=== PATIENT | female | born 1965 | race Caucasian/White ===

== ENCOUNTER 2017-02-24 18:56 | Inpatient (IN) | payer MEDICARE, OTHER ==
[~2017-02-24] VITALS: Ht 165.1 cm; Wt 54.5 kg
[~2017-02-24 18:56] MED LIST: CLON0.1T20 PO; LEVE250T4 PO; PHEN100C4 PO; TEMA15CA PO; ZOL50T PO
[2017-02-24 19:32] LABS: BASOPHILS % (AUTO) 0.6 % (0-1); EOSINOPHILS % (AUTO) 0.8 % (0-6); HEMATOCRIT 39.5 % (35.0-45.0); HEMOGLOBIN 13.7 g/dl (12.0-16.0); LYMPHOCYTES # (AUTO) 1.2 X10'3 (1.1-4.8); LYMPHOCYTES % (AUTO) 48.4 % (21-51); MEAN CORPUSCULAR HEMOGLOBIN 37.3 PG (27.0-31.0); MEAN CORPUSCULAR HGB CONC 34.7 % (33.0-36.5); MEAN CORPUSCULAR VOLUME 107.6 FL (78-98); MEAN PLATELET VOLUME 7.4 FL (7.4-10.4); MONOCYTES # (AUTO) 0.4 X10'3 (0-0.9); MONOCYTES % (AUTO) 14.8 % (2-12); NEUTROPHILS # (AUTO) 0.8 X10'3 (1.8-7.7); NEUTROPHILS % (AUTO) 35.4 % (42-75); PLATELET COUNT 101 X10'3 (140-440); RED BLOOD COUNT 3.67 X10'6 (4.20-5.60); RED CELL DISTRIBUTION WIDTH 18.2 % (11.5-14.5); WHITE BLOOD COUNT 2.4 X10'3 (4.5-11.0)
[2017-02-24 19:43] LABS: INR 0.9 INR; PARTIAL THROMBOPLASTIN TIME 27 SECONDS (22-32); PROTHROMBIN TIME 9.7 SECONDS (9.0-12.0)
[2017-02-24 19:54] LABS: ALANINE AMINOTRANSFERASE 40 U/L (12-78); ALBUMIN 3.8 G/DL (3.4-5.0); ALBUMIN/GLOBULIN RATIO 0.9 (1.1-1.5); ALKALINE PHOSPHATASE 124 IU/L (46-116); ANION GAP 12 (8-16); ASPARTATE AMINO TRANSFERASE 68 U/L (10-37); BILIRUBIN,TOTAL 0.2 MG/DL (0.1-1.0); BLOOD UREA NITROGEN 8 MG/DL (7-18); CALCIUM 8.2 MG/DL (8.5-10.1); CHLORIDE 105 MMOL/L (99-107); ETHANOL 0.351 GM/DL (0.0-0.010); GLUCOSE 87 MG/DL (70-104); PHENYTOIN (DILANTIN) 17.7 UG/ML (10.0-20.0); SODIUM 143 MMOL/L (135-145); TOTAL CARBON DIOXIDE 26.3 MMOL/L (24-32); TOTAL PROTEIN 7.9 G/DL (6.4-8.2); eGFR > 90 ML/MIN
[2017-02-24] MEDS ORDERED: normal saline 1000ML IV soln IVB ONE (20:10)
[2017-02-24 20:50] LABS: TOTAL CELLS COUNTED 100
[2017-02-24 20:51] LABS: ANISOCYTOSIS 2+; PLATELET ESTIMATE DECREASED
[2017-02-24 21:02] LABS: CLARITY,URINE CLEAR (Clear); COLOR,URINE YELLOW (Yellow); GLUCOSE, URINE NEGATIVE (Neg); KETONES,URINE NEGATIVE (Neg); LEUKOCYTE ESTERASE ,URINE NEGATIVE (Neg); NITRITES, URINE NEGATIVE (Neg); OCCULT BLOOD,URINE NEGATIVE (Neg); PROTEIN,URINE NEGATIVE (Neg); URINE AMPHETAMINE SCREEN NEGATIVE (Neg); URINE BARBITUATE SCREEN NEGATIVE (Neg); URINE BENZODIAZEPINES SCREEN NEGATIVE (Neg); URINE CANNABINOID SCREEN NEGATIVE (Neg); URINE COCAINE SCREEN NEGATIVE (Neg); URINE METHADONE SCREEN NEGATIVE (Neg); URINE OPIATE SCREEN NEGATIVE (Neg); URINE PHENCYCLIDINE SCREEN NEGATIVE (Neg); UROBILINOGEN,URINE 0.2 E.U/dL (0.2-1.0)
[2017-02-24 21:21] LABS: UA COLLECTION TYPE CLN CATCH MIDSTREAM
[2017-02-25] MEDS ORDERED: LORazepam 2 mg/ml vial ONE ×2 (08:32→08:47)
[2017-02-25] MEDS ORDERED: LORazepam 2 mg/ml vial IM ONE (08:35)
[2017-02-25] MEDS ORDERED: phenobarbital inj 260 MG in normal saline 100ml IV soln 99 ML IV STA (08:43)
[2017-02-25] MEDS ORDERED: LORazepam 2 mg/ml vial IV ONE ×2 (08:45→08:50)
[2017-02-25] MEDS ORDERED: thiamine inj. 100 MG in normal saline 100ml IV soln 99 ML IV ONE (08:45)
[2017-02-25] MEDS ORDERED: normal saline 1000ML IV soln IVB ONE (08:45)
[2017-02-25] MEDS ORDERED: magnesium 2GM in 50ml NS 50 ML IV ONE (08:45)
[2017-02-25] MEDS ORDERED: phenytoin sod 50mg/ml 2ml vial IV ONE (08:50)
[2017-02-25] MEDS ORDERED: phenytoin sod 50mg/ml 2ml vial IV SCH (08:50)
[2017-02-25] MEDS ORDERED: phenobarbital inj 130 MG in normal saline 100ml IV soln 99 ML IV PRN (11:50)
[2017-02-25] MEDS ORDERED: potassium Cl 20 mEq SR tablet PO PRN (15:15)
[2017-02-25] MEDS ORDERED: magnesium 2GM in 50ml NS 50 ML IV PRN (15:15)
[2017-02-25] MEDS ORDERED: dextrose 50%-water 50ml dispensing syringe IV PRN (15:15)
[2017-02-25] MEDS ORDERED: ondansetron/PF 4mg/2ml inj IV PRN (15:15)
[2017-02-25] MEDS ORDERED: LORazepam 2 mg/ml vial IV PRN ×2 (15:15→21:30)
[2017-02-25] MEDS ORDERED: potassium Cl 40MEQ/NS 500ml 500 ML IV PRN ×2 (15:15)
[2017-02-25] MEDS ORDERED: mag hydrox/Alum hydrox/simeth 30ml oral suspension PO PRN (15:15)
[2017-02-25] MEDS ORDERED: magnesium hydroxide 30ml (MOM) UD suspension PO PRN (15:15)
[2017-02-25] MEDS ORDERED: acetaminophen 325mg tablet PO PRN (15:15)
[2017-02-25] MEDS ORDERED: magnesium 4gm in 100ml NS 100 ML IV PRN (15:15)
[2017-02-25] MEDS ORDERED: cloNIDine 0.1 MG/24 HOUR patch (7 day patch) TD SCH (15:15)
[2017-02-25] MEDS ORDERED: haloperidol lactate 5mg/ml inj IM PRN (15:15)
[2017-02-25] MEDS ORDERED: magnesium Cl slow-release 64mg tablet PO PRN (15:15)
[2017-02-25 17:50] VITALS: BP 164/94
[2017-02-25] MEDS ORDERED: phenytoin sod ER 100mg capsule PO SCH (20:00)
[2017-02-25] MEDS ORDERED: heparin, porcine 5000 units/ml vial SQ SCH (20:00)
[2017-02-25] MEDS ORDERED: temazepam 15mg capsule PO PRN (21:00)
[2017-02-25] MEDS: phenytoin sod ER 100mg capsule PO SCH (21:06)
[2017-02-25] MEDS: levetiracetam 250mg tablet PO SCH (21:06)
[2017-02-25 22:00] VITALS: BP 135/92
[2017-02-26 05:00] VITALS: BP 122/89
[2017-02-26 06:34] LABS: HEMATOCRIT 39.2 % (35.0-45.0); HEMOGLOBIN 13.6 g/dl (12.0-16.0); MEAN CORPUSCULAR HEMOGLOBIN 37.5 PG (27.0-31.0); MEAN CORPUSCULAR HGB CONC 34.7 % (33.0-36.5); MEAN PLATELET VOLUME 7.9 FL (7.4-10.4); PLATELET COUNT 78 X10'3 (140-440); RED BLOOD COUNT 3.63 X10'6 (4.20-5.60); WHITE BLOOD COUNT 2.7 X10'3 (4.5-11.0)
[2017-02-26 06:48] LABS: ALANINE AMINOTRANSFERASE 39 U/L (12-78); ALBUMIN 3.7 G/DL (3.4-5.0); ALBUMIN/GLOBULIN RATIO 0.9 (1.1-1.5); ALKALINE PHOSPHATASE 106 IU/L (46-116); ANION GAP 11 (8-16); ASPARTATE AMINO TRANSFERASE 53 U/L (10-37); BILIRUBIN,TOTAL 0.6 MG/DL (0.1-1.0); BLOOD UREA NITROGEN 5 MG/DL (7-18); BUN/CREATININE RATIO 9.3 (6.6-38.0); CALCIUM 8.4 MG/DL (8.5-10.1); CHLORIDE 99 MMOL/L (99-107); CREATININE 0.54 MG/DL (0.40-0.90); GLUCOSE 75 MG/DL (70-104); MAGNESIUM 2.1 MG/DL (1.5-2.4); PHOSPHORUS 2.9 MG/DL (2.3-4.5); SODIUM 137 MMOL/L (135-145); TOTAL CARBON DIOXIDE 26.9 MMOL/L (24-32); TOTAL PROTEIN 7.8 G/DL (6.4-8.2); eGFR > 90 ML/MIN
[2017-02-26 07:05] LABS: POTASSIUM 2.9 MMOL/L (3.5-5.1)
[2017-02-26 07:49] LABS: ANISOCYTOSIS 2+; PLATELET ESTIMATE DECREASED; TOTAL CELLS COUNTED 100
[2017-02-26] MEDS ORDERED: K and/or MAG REPLACEMENT MC SCH (08:00)
[2017-02-26] MEDS ORDERED: folic acid 1mg tablet PO SCH ×2 (08:00)
[2017-02-26] MEDS ORDERED: pantoprazole 40 MG vial IV SCH (08:00)
[2017-02-26] MEDS ORDERED: sertraline 50mg tablet PO SCH (08:00)
[2017-02-26] MEDS ORDERED: multivitamins, therapeutics tablet PO SCH ×2 (08:00)
[2017-02-26] MEDS ORDERED: thiamine 100mg tablet PO SCH ×2 (08:00)
[2017-02-26] MEDS: phenytoin sod ER 100mg capsule PO SCH (08:13)
[2017-02-26] MEDS: levetiracetam 250mg tablet PO SCH (08:14)
[2017-02-26] MEDS: potassium Cl 20 mEq SR tablet PO PRN ×2 (08:14→12:06)
[2017-02-26 10:00] VITALS: BP 134/77
[2017-02-26] MEDS ORDERED: THI100T PO (13:22)
[2017-02-26] MEDS ORDERED: FOLI1TAB16 PO (13:22)
[2017-02-26] MEDS ORDERED: CLON0.1T20 PO (13:22)
[2017-02-26] MEDS ORDERED: MULT-1179 PO (13:22)
[2017-02-26] MEDS ORDERED: LEVE250T4 PO (14:00)
[2017-02-27] MEDS ORDERED: LORazepam 2 mg/ml vial IV PRN (21:30)
[2017-02-27] MEDS ORDERED: LORazepam 1 MG tablet PO PRN (21:30)
[2017-03-01] MEDS ORDERED: LORazepam 2 mg/ml vial IV PRN ×2 (15:15→21:30)
[2017-03-01] MEDS ORDERED: LORazepam 1 MG tablet PO PRN (21:30)
== END 2017-02-26 16:36 | disposition home or self-care (01) | DRG 897 ==
LOC: ER 18:57 → ED HOLD 02-25 14:13 → ORTHO 4S 02-25 17:50
PROVIDERS: ADMIT Internal Medicine; ATTEND Internal Medicine
DX: F10.239 Alcohol dependence with withdrawal, unspecified (principal); F10.229 Alcohol dependence with intoxication, unspecified; G40.89 Other seizures; F32.9 Major depressive disorder, single episode, unspecified; F41.9 Anxiety disorder, unspecified; G31.9 Degenerative disease of nervous system, unspecified; Z79.899 Other long term (current) drug therapy; Z90.49 Acquired absence of other specified parts of digestive tract
CPT/HCPCS: 36415; 70450; 71045; 80053; 80177; 80185; 80305; 80320; 81003; 82140; 82948; 83735; 84100; 84132; 84484; 85025; 85610; 85730; 87070; 96361; 96365; 96366; 96375; 99291; C9113; J1165; J1644; J2060; J2560; J3411; J3475; J7030

== ENCOUNTER 2017-06-08 15:13 | Inpatient (IN) | payer MEDICARE, MEDICAID ==
[~2017-06-08] VITALS: Ht 177.8 cm; Wt 70.0 kg
[~2017-06-08 15:13] MED LIST changes: +FOLI1TAB16 PO; +MULT-1179 PO; -PHEN100C4 PO; +THI100T PO
[2017-06-08] MEDS ORDERED: normal saline 1000ML IV soln IVB ONE ×2 (15:40→17:40)
[2017-06-08] MEDS ORDERED: LORazepam 2 mg/ml vial IV ONE ×2 (15:45→18:45)
[2017-06-08 16:13] LABS: BASOPHILS % (AUTO) 0.1 % (0-1); EOSINOPHILS % (AUTO) 0 % (0-6); HEMATOCRIT 38.5 % (35.0-45.0); HEMOGLOBIN 13.6 g/dl (12.0-16.0); LYMPHOCYTES # (AUTO) 0.3 X10'3 (1.1-4.8); LYMPHOCYTES % (AUTO) 9.2 % (21-51); MEAN CORPUSCULAR HEMOGLOBIN 41.4 PG (27.0-31.0); MEAN CORPUSCULAR HGB CONC 35.3 % (33.0-36.5); MEAN CORPUSCULAR VOLUME 117.3 FL (78-98); MEAN PLATELET VOLUME 7.7 FL (7.4-10.4); MONOCYTES # (AUTO) 0.2 X10'3 (0-0.9); MONOCYTES % (AUTO) 5.6 % (2-12); NEUTROPHILS # (AUTO) 3.2 X10'3 (1.8-7.7); NEUTROPHILS % (AUTO) 85.1 % (42-75); PLATELET COUNT 153 X10'3 (140-440); RED BLOOD COUNT 3.28 X10'6 (4.20-5.60); RED CELL DISTRIBUTION WIDTH 15.8 % (11.5-14.5); WHITE BLOOD COUNT 3.8 X10'3 (4.5-11.0)
[2017-06-08 16:24] LABS: ALANINE AMINOTRANSFERASE 119 U/L (12-78); ALBUMIN 4.3 G/DL (3.4-5.0); ALBUMIN/GLOBULIN RATIO 1.2 (1.1-1.5); ALKALINE PHOSPHATASE 146 IU/L (46-116); ANION GAP 23 (8-16); ASPARTATE AMINO TRANSFERASE 224 U/L (10-37); BILIRUBIN,TOTAL 1.5 MG/DL (0.1-1.0); BLOOD UREA NITROGEN 5 MG/DL (7-18); BUN/CREATININE RATIO 5.2 (6.6-38.0); CALCIUM 8.8 MG/DL (8.5-10.1); CHLORIDE 98 MMOL/L (99-107); CREATININE 0.96 MG/DL (0.40-0.90); GLUCOSE 145 MG/DL (70-104); POTASSIUM 3.6 MMOL/L (3.5-5.1); SODIUM 137 MMOL/L (135-145); TOTAL CARBON DIOXIDE 15.9 MMOL/L (24-32); eGFR 62 ML/MIN
[2017-06-08 16:29] LABS: PHENYTOIN (DILANTIN) < 0.5 UG/ML (10.0-20.0)
[2017-06-08 16:32] LABS: ETHANOL < 0.010 GM/DL (0.0-0.010)
[2017-06-08 17:41] LABS: PLATELET ESTIMATE NORMAL
[2017-06-08 17:46] LABS: ANISOCYTOSIS 1+
[2017-06-08 18:48] LABS: URINE AMPHETAMINE SCREEN NEGATIVE (Neg); URINE BARBITUATE SCREEN NEGATIVE (Neg); URINE BENZODIAZEPINES SCREEN POSITIVE (Neg); URINE CANNABINOID SCREEN NEGATIVE (Neg); URINE COCAINE SCREEN NEGATIVE (Neg); URINE METHADONE SCREEN NEGATIVE (Neg); URINE OPIATE SCREEN NEGATIVE (Neg); URINE PHENCYCLIDINE SCREEN NEGATIVE (Neg)
[2017-06-08] MEDS ORDERED: levetiracetam inj 500 MG in normal saline 100ml IV soln 95 ML IV ONE (21:31)
[2017-06-08] MEDS: normal saline 1000ml 1,000 ML IV SCH (22:49)
[2017-06-08] MEDS ORDERED: mag hydrox/Alum hydrox/simeth 30ml oral suspension PO PRN (22:50)
[2017-06-08] MEDS ORDERED: magnesium hydroxide 30ml (MOM) UD suspension PO PRN (22:50)
[2017-06-08] MEDS ORDERED: ondansetron/PF 4mg/2ml inj IV PRN (22:50)
[2017-06-08] MEDS ORDERED: acetaminophen 325mg tablet PO PRN ×2 (22:50)
[2017-06-08] MEDS ORDERED: haloperidol 5mg tablet PO PRN (22:55)
[2017-06-08] MEDS ORDERED: thiamine inj. 100 MG in normal saline 100ml IV soln 100 ML IV ONE (22:55)
[2017-06-09] MEDS ORDERED: thiamine 100mg/ml 2ml inj. IV ONE (01:40)
[2017-06-09 06:01] LABS: BASOPHILS % (AUTO) 0.2 % (0-1); EOSINOPHILS % (AUTO) 0.6 % (0-6); HEMOGLOBIN 13.1 g/dl (12.0-16.0); LYMPHOCYTES # (AUTO) 0.5 X10'3 (1.1-4.8); MEAN CORPUSCULAR HEMOGLOBIN 41.6 PG (27.0-31.0); MEAN CORPUSCULAR HGB CONC 35.5 % (33.0-36.5); MEAN CORPUSCULAR VOLUME 117.3 FL (78-98); MEAN PLATELET VOLUME 7.2 FL (7.4-10.4); MONOCYTES # (AUTO) 0.2 X10'3 (0-0.9); MONOCYTES % (AUTO) 4.6 % (2-12); NEUTROPHILS # (AUTO) 4.5 X10'3 (1.8-7.7); NEUTROPHILS % (AUTO) 84.6 % (42-75); PLATELET COUNT 130 X10'3 (140-440); RED BLOOD COUNT 3.16 X10'6 (4.20-5.60); RED CELL DISTRIBUTION WIDTH 15.6 % (11.5-14.5); WHITE BLOOD COUNT 5.3 X10'3 (4.5-11.0)
[2017-06-09 06:30] LABS: ALBUMIN 3.6 G/DL (3.4-5.0); ANION GAP 17 (8-16); BLOOD UREA NITROGEN 4 MG/DL (7-18); CALCIUM 8.2 MG/DL (8.5-10.1); CHLORIDE 100 MMOL/L (99-107); CREATININE 0.57 MG/DL (0.40-0.90); GLUCOSE 89 MG/DL (70-104); MAGNESIUM 1.6 MG/DL (1.5-2.4); PHOSPHORUS 2.7 MG/DL (2.3-4.5); SODIUM 139 MMOL/L (135-145); TOTAL CARBON DIOXIDE 21.8 MMOL/L (24-32); eGFR > 90 ML/MIN
[2017-06-09 06:41] LABS: POTASSIUM 2.9 MMOL/L (3.5-5.1)
[2017-06-09] MEDS ORDERED: potassium Cl 20 mEq SR tablet PO PRN (07:00)
[2017-06-09] MEDS ORDERED: potassium Cl 40MEQ/NS 500ml 500 ML IV PRN ×2 (07:00)
[2017-06-09] MEDS ORDERED: folic acid inj. 2 MG, thiamine inj. 100 MG, MVI, adult No.4 with vit. K 10 ML in dextro... IV SCH ×4 (08:00)
[2017-06-09] MEDS: levetiracetam 250mg tablet PO SCH ×2 (08:50→21:03)
[2017-06-09] MEDS: folic acid 1mg tablet PO SCH (08:50)
[2017-06-09] MEDS: thiamine 100mg tablet PO SCH (08:50)
[2017-06-09] MEDS: multivitamins, therapeutics tablet PO SCH (08:51)
[2017-06-09] MEDS: normal saline 1000ml 1,000 ML IV SCH ×2 (09:33→18:40)
[2017-06-09] MEDS ORDERED: LEVE750T PO (11:05)
[2017-06-09 14:19] VITALS: BP 131/98
[2017-06-09] MEDS: LORazepam 2 mg/ml vial IV PRN ×3 (14:50→19:52)
[2017-06-09 15:45] VITALS: BP 130/90
[2017-06-09] MEDS ORDERED: propranolol 10mg tablet PO ONE (16:40)
[2017-06-09] MEDS: potassium Cl 20 mEq SR tablet PO PRN ×2 (17:22→21:03)
[2017-06-09 19:00] VITALS: BP 122/90
[2017-06-09] MEDS: haloperidol lactate 5mg/ml inj IM PRN (19:08)
[2017-06-09] MEDS: propranolol 10mg tablet PO SCH (21:03)
[2017-06-09 23:00] VITALS: BP 117/78
[2017-06-10] MEDS: LORazepam 2 mg/ml vial IV PRN ×4 (02:06→20:52)
[2017-06-10 03:00] VITALS: BP 114/81
[2017-06-10] MEDS: normal saline 1000ml 1,000 ML IV SCH ×2 (04:49→14:49)
[2017-06-10 05:34] LABS: BASOPHILS % (AUTO) 0.3 % (0-1); EOSINOPHILS % (AUTO) 0 % (0-6); HEMATOCRIT 34.3 % (35.0-45.0); HEMOGLOBIN 12.2 g/dl (12.0-16.0); LYMPHOCYTES # (AUTO) 0.7 X10'3 (1.1-4.8); LYMPHOCYTES % (AUTO) 14.8 % (21-51); MEAN CORPUSCULAR HEMOGLOBIN 41.1 PG (27.0-31.0); MEAN CORPUSCULAR HGB CONC 35.5 % (33.0-36.5); MEAN CORPUSCULAR VOLUME 115.6 FL (78-98); MEAN PLATELET VOLUME 8.7 FL (7.4-10.4); MONOCYTES # (AUTO) 0.2 X10'3 (0-0.9); MONOCYTES % (AUTO) 3.6 % (2-12); NEUTROPHILS # (AUTO) 3.9 X10'3 (1.8-7.7); NEUTROPHILS % (AUTO) 81.3 % (42-75); PLATELET COUNT 101 X10'3 (140-440); RED BLOOD COUNT 2.97 X10'6 (4.20-5.60); RED CELL DISTRIBUTION WIDTH 15.6 % (11.5-14.5); WHITE BLOOD COUNT 4.8 X10'3 (4.5-11.0)
[2017-06-10 05:48] LABS: ALBUMIN 3.1 G/DL (3.4-5.0); ANION GAP 12 (8-16); BLOOD UREA NITROGEN 5 MG/DL (7-18); BUN/CREATININE RATIO 7.9 (6.6-38.0); CALCIUM 8.2 MG/DL (8.5-10.1); CHLORIDE 108 MMOL/L (99-107); CREATININE 0.63 MG/DL (0.40-0.90); GLUCOSE 96 MG/DL (70-104); MAGNESIUM 1.6 MG/DL (1.5-2.4); PHOSPHORUS 1.7 MG/DL (2.3-4.5); POTASSIUM 3.6 MMOL/L (3.5-5.1); SODIUM 141 MMOL/L (135-145); TOTAL CARBON DIOXIDE 20.8 MMOL/L (24-32); eGFR > 90 ML/MIN
[2017-06-10 06:57] VITALS: BP 118/84
[2017-06-10] MEDS: thiamine 100mg tablet PO SCH (08:41)
[2017-06-10] MEDS: folic acid 1mg tablet PO SCH (08:41)
[2017-06-10] MEDS: levetiracetam 250mg tablet PO SCH ×2 (08:41→20:52)
[2017-06-10] MEDS: propranolol 10mg tablet PO SCH ×3 (08:41→21:05)
[2017-06-10] MEDS: multivitamins, therapeutics tablet PO SCH (08:41)
[2017-06-10 11:00] VITALS: BP 124/91
[2017-06-10 15:00] VITALS: BP 107/78
[2017-06-10] MEDS: haloperidol lactate 5mg/ml inj IM PRN (17:09)
[2017-06-10 19:00] VITALS: BP 134/97
[2017-06-10 23:00] VITALS: BP 115/80
[2017-06-11] MEDS: normal saline 1000ml 1,000 ML IV SCH ×2 (00:49→04:32)
[2017-06-11] MEDS ORDERED: LORazepam 2 mg/ml vial IV PRN (01:00)
[2017-06-11 03:00] VITALS: BP 133/94
[2017-06-11] MEDS: LORazepam 1 MG tablet PO PRN ×2 (03:57→05:27)
[2017-06-11 05:30] LABS: BASOPHILS % (AUTO) 0.3 % (0-1); EOSINOPHILS # (AUTO) 0.1 X10'3 (0-0.9); HEMATOCRIT 34.3 % (35.0-45.0); LYMPHOCYTES # (AUTO) 0.7 X10'3 (1.1-4.8); LYMPHOCYTES % (AUTO) 12.6 % (21-51); MEAN CORPUSCULAR HEMOGLOBIN 40.8 PG (27.0-31.0); MEAN CORPUSCULAR VOLUME 116.4 FL (78-98); MEAN PLATELET VOLUME 9.3 FL (7.4-10.4); MONOCYTES # (AUTO) 0.2 X10'3 (0-0.9); MONOCYTES % (AUTO) 3.4 % (2-12); NEUTROPHILS # (AUTO) 4.5 X10'3 (1.8-7.7); NEUTROPHILS % (AUTO) 82.7 % (42-75); PLATELET COUNT 79 X10'3 (140-440); RED BLOOD COUNT 2.95 X10'6 (4.20-5.60); RED CELL DISTRIBUTION WIDTH 15.3 % (11.5-14.5); WHITE BLOOD COUNT 5.5 X10'3 (4.5-11.0)
[2017-06-11 05:50] LABS: ALBUMIN 3.1 G/DL (3.4-5.0); ANION GAP 10 (8-16); BLOOD UREA NITROGEN 5 MG/DL (7-18); BUN/CREATININE RATIO 8.2 (6.6-38.0); CALCIUM 8.3 MG/DL (8.5-10.1); CHLORIDE 104 MMOL/L (99-107); CREATININE 0.61 MG/DL (0.40-0.90); GLUCOSE 116 MG/DL (70-104); MAGNESIUM 1.3 MG/DL (1.5-2.4); PHOSPHORUS 1.5 MG/DL (2.3-4.5); POTASSIUM 3.4 MMOL/L (3.5-5.1); SODIUM 137 MMOL/L (135-145); TOTAL CARBON DIOXIDE 22.7 MMOL/L (24-32); eGFR > 90 ML/MIN
[2017-06-11 06:00] VITALS: BP 119/94
[2017-06-11] MEDS: multivitamins, therapeutics tablet PO SCH (07:37)
[2017-06-11] MEDS: propranolol 10mg tablet PO SCH ×2 (07:37→13:18)
[2017-06-11] MEDS: thiamine 100mg tablet PO SCH (07:37)
[2017-06-11] MEDS: levetiracetam 250mg tablet PO SCH (07:37)
[2017-06-11] MEDS: folic acid 1mg tablet PO SCH (07:38)
[2017-06-11 11:00] VITALS: BP 127/94
[2017-06-11] MEDS ORDERED: PROP10TA10 PO (11:35)
[2017-06-11] MEDS ORDERED: THI100T PO (11:35)
[2017-06-11] MEDS ORDERED: FOLI1TAB16 PO (11:35)
[2017-06-11] MEDS ORDERED: MAGN500C16 PO (13:48)
[2017-06-13] MEDS ORDERED: LORazepam 2 mg/ml vial IV PRN (01:00)
[2017-06-13] MEDS ORDERED: LORazepam 1 MG tablet PO PRN (01:00)
== END 2017-06-11 14:47 | disposition home or self-care (01) | DRG 101 ==
LOC: ER 15:13 → ED HOLD 22:49 → PCU 3S 06-09 14:00
PROVIDERS: ADMIT Internal Medicine; ATTEND Internal Medicine
DX: G40.909 Epilepsy, unspecified, not intractable, without status epilepticus (principal); E87.6 Hypokalemia; F10.230 Alcohol dependence with withdrawal, uncomplicated; F32.9 Major depressive disorder, single episode, unspecified; F41.9 Anxiety disorder, unspecified; I10 Essential (primary) hypertension; F17.210 Nicotine dependence, cigarettes, uncomplicated; Z79.899 Other long term (current) drug therapy; Z90.49 Acquired absence of other specified parts of digestive tract; Z71.6 Tobacco abuse counseling
CPT/HCPCS: 36415; 70450; 71045; 80048; 80053; 80185; 80305; 80320; 82140; 83735; 84100; 84132; 85025; 87070; 93005; 96361; 96374; 96376; 99285; J1630; J1953; J2060; J2405; J3411; J3490; J7030; J7060

== ENCOUNTER 2017-07-31 13:06 | Emergency (ER) | payer MEDICAID, MEDICARE ==
[~2017-07-31] VITALS: Ht 180.3 cm; Wt 62.2 kg
[~2017-07-31 13:06] MED LIST changes: -CLON0.1T20 PO; -LEVE250T4 PO; +LEVE750T PO; +MAGN500C16 PO; -MULT-1179 PO; +PROP10TA10 PO; -TEMA15CA PO; -ZOL50T PO
[2017-07-31 14:01] LABS: INR 1.1 INR; PARTIAL THROMBOPLASTIN TIME 29 SECONDS (22-32); PROTHROMBIN TIME 11.2 SECONDS (9.0-12.0)
[2017-07-31 14:05] LABS: ALANINE AMINOTRANSFERASE 109 U/L (12-78); ALBUMIN 3.9 G/DL (3.4-5.0); ALKALINE PHOSPHATASE 159 IU/L (46-116); ANION GAP 16 (8-16); ASPARTATE AMINO TRANSFERASE 308 U/L (10-37); BILIRUBIN,TOTAL 2.2 MG/DL (0.1-1.0); BLOOD UREA NITROGEN 3 MG/DL (7-18); BUN/CREATININE RATIO 5.2 (6.6-38.0); CALCIUM 8.5 MG/DL (8.5-10.1); CHLORIDE 102 MMOL/L (99-107); CREATININE 0.58 MG/DL (0.40-0.90); GLUCOSE 103 MG/DL (70-104); POTASSIUM 3.6 MMOL/L (3.5-5.1); SODIUM 142 MMOL/L (135-145); TOTAL CARBON DIOXIDE 23.9 MMOL/L (24-32); TOTAL PROTEIN 7.8 G/DL (6.4-8.2); eGFR > 90 ML/MIN
[2017-07-31 14:06] LABS: HEMATOCRIT 35.2 % (35.0-45.0); HEMOGLOBIN 12.4 g/dl (12.0-16.0); MEAN CORPUSCULAR HEMOGLOBIN 40.3 PG (27.0-31.0); MEAN CORPUSCULAR HGB CONC 35.1 % (33.0-36.5); MEAN CORPUSCULAR VOLUME 114.6 FL (78-98); MEAN PLATELET VOLUME 7.8 FL (7.4-10.4); PLATELET COUNT 68 X10'3 (140-440); RED BLOOD COUNT 3.08 X10'6 (4.20-5.60); RED CELL DISTRIBUTION WIDTH 15.7 % (11.5-14.5); WHITE BLOOD COUNT 2.5 X10'3 (4.5-11.0)
[2017-07-31 14:15] LABS: TOTAL CELLS COUNTED 100
[2017-07-31 14:16] LABS: ANISOCYTOSIS 1+; PLATELET ESTIMATE DECREASED; POLYCHROMASIA 1+
[2017-07-31 14:17] LABS: TARGET CELLS 2+
[2017-07-31 15:01] LABS: URINE AMPHETAMINE SCREEN NEGATIVE (Neg); URINE BARBITUATE SCREEN NEGATIVE (Neg); URINE BENZODIAZEPINES SCREEN NEGATIVE (Neg); URINE CANNABINOID SCREEN NEGATIVE (Neg); URINE COCAINE SCREEN NEGATIVE (Neg); URINE METHADONE SCREEN NEGATIVE (Neg); URINE OPIATE SCREEN NEGATIVE (Neg); URINE PHENCYCLIDINE SCREEN NEGATIVE (Neg)
[2017-07-31 16:06] VITALS: BP 124/86
== END 2017-07-31 16:19 | disposition home or self-care (01) ==
LOC: ER 13:06
DX: F10.129 Alcohol abuse with intoxication, unspecified (principal); R56.9 Unspecified convulsions; Z90.49 Acquired absence of other specified parts of digestive tract; Z79.899 Other long term (current) drug therapy; Z87.891 Personal history of nicotine dependence; Y90.9 Presence of alcohol in blood, level not specified
CPT/HCPCS: 36415; 71045; 80053; 80305; 80320; 84484; 85025; 85610; 85730; 93005; 99285

== ENCOUNTER 2017-08-11 19:53 | Emergency (ER) | payer MEDICARE ==
[~2017-08-11] VITALS: Ht 177.8 cm; Wt 54.0 kg
[2017-08-11] MEDS ORDERED: normal saline 1000ML IV soln IVB ONE (20:35)
[2017-08-11] MEDS ORDERED: LORazepam 2 mg/ml vial IV ONE (20:45)
[2017-08-11 21:23] LABS: HEMATOCRIT 32.9 % (35.0-45.0); HEMOGLOBIN 11.7 g/dl (12.0-16.0); MEAN CORPUSCULAR HGB CONC 35.5 % (33.0-36.5); MEAN CORPUSCULAR VOLUME 115.5 FL (78-98); MEAN PLATELET VOLUME 8.5 FL (7.4-10.4); PLATELET COUNT 256 X10'3 (140-440); RED BLOOD COUNT 2.85 X10'6 (4.20-5.60); RED CELL DISTRIBUTION WIDTH 16.5 % (11.5-14.5); WHITE BLOOD COUNT 2.8 X10'3 (4.5-11.0)
[2017-08-11 21:32] LABS: PARTIAL THROMBOPLASTIN TIME 25 SECONDS (22-32); PROTHROMBIN TIME 10.8 SECONDS (9.0-12.0)
[2017-08-11 21:36] LABS: ALANINE AMINOTRANSFERASE 57 U/L (12-78); ALBUMIN 3.4 G/DL (3.4-5.0); ALBUMIN/GLOBULIN RATIO 0.9 (1.1-1.5); ALKALINE PHOSPHATASE 148 IU/L (46-116); ANION GAP 12 (8-16); ASPARTATE AMINO TRANSFERASE 154 U/L (10-37); BILIRUBIN,TOTAL 1.5 MG/DL (0.1-1.0); BLOOD UREA NITROGEN 7 MG/DL (7-18); BUN/CREATININE RATIO 9.3 (6.6-38.0); CHLORIDE 106 MMOL/L (99-107); CREATININE 0.75 MG/DL (0.40-0.90); GLUCOSE 82 MG/DL (70-104); POTASSIUM 3.9 MMOL/L (3.5-5.1); SODIUM 143 MMOL/L (135-145); TOTAL CARBON DIOXIDE 25.1 MMOL/L (24-32); TOTAL PROTEIN 7.4 G/DL (6.4-8.2); eGFR 81 ML/MIN
[2017-08-11 21:39] LABS: LACTIC SEPSIS 1.4 MMOL/L (0.4-2.0)
[2017-08-11 21:41] LABS: ANISOCYTOSIS 1+; PLATELET ESTIMATE NORMAL; TOTAL CELLS COUNTED 50
[2017-08-11 21:45] LABS: CREATINE KINASE 75 U/L (26-192); MAGNESIUM 1.9 MG/DL (1.5-2.4)
[2017-08-11 21:48] LABS: ETHANOL 0.349 GM/DL (0.0-0.010); PHENYTOIN (DILANTIN) < 0.5 UG/ML (10.0-20.0)
[2017-08-11 21:49] LABS: ACETAMINOPHEN < 2.0 UG/ML (10-30)
[2017-08-11 22:11] LABS: CLARITY,URINE CLEAR (Clear); COLOR,URINE YELLOW (Yellow); GLUCOSE, URINE NEGATIVE (Neg); KETONES,URINE NEGATIVE (Neg); LEUKOCYTE ESTERASE ,URINE NEGATIVE (Neg); NITRITES, URINE NEGATIVE (Neg); OCCULT BLOOD,URINE NEGATIVE (Neg); PH,URINE 5.5 (4.8-8.0); PROTEIN,URINE NEGATIVE (Neg); UROBILINOGEN,URINE 0.2 E.U/dL (0.2-1.0)
[2017-08-11 22:18] LABS: UA COLLECTION TYPE STRAIGHT CATH
[2017-08-11 22:22] LABS: URINE AMPHETAMINE SCREEN NEGATIVE (Neg); URINE BARBITUATE SCREEN NEGATIVE (Neg); URINE BENZODIAZEPINES SCREEN NEGATIVE (Neg); URINE CANNABINOID SCREEN NEGATIVE (Neg); URINE COCAINE SCREEN NEGATIVE (Neg); URINE METHADONE SCREEN NEGATIVE (Neg); URINE OPIATE SCREEN NEGATIVE (Neg); URINE PHENCYCLIDINE SCREEN NEGATIVE (Neg)
[2017-08-12 09:45] VITALS: BP 118/68
== END 2017-08-12 09:47 | disposition home or self-care (01) ==
LOC: ER 19:53
DX: F10.129 Alcohol abuse with intoxication, unspecified (principal); R41.82 Altered mental status, unspecified; Z79.899 Other long term (current) drug therapy; Z90.89 Acquired absence of other organs
CPT/HCPCS: 36415; 70450; 71045; 80053; 80185; 80305; 80320; 80329; 81003; 82140; 82550; 82948; 83605; 83735; 84443; 84484; 85025; 85610; 85730; 87040; 93005; 96374; 99285; J2060; J7030

== ENCOUNTER 2017-08-22 20:11 | Emergency (ER) | payer MEDICARE ==
[~2017-08-22] VITALS: Ht 180.3 cm; Wt 58.6 kg
[2017-08-22 20:51] VITALS: BP 129/86
== END 2017-08-22 20:55 | disposition home or self-care (01) ==
LOC: ER 20:11
DX: F10.129 Alcohol abuse with intoxication, unspecified (principal); R47.81 Slurred speech; Z90.49 Acquired absence of other specified parts of digestive tract; Z98.890 Other specified postprocedural states; Z79.899 Other long term (current) drug therapy; Y90.9 Presence of alcohol in blood, level not specified
CPT/HCPCS: 99284

== ENCOUNTER 2019-03-23 20:07 | Emergency (ER) | payer MEDICARE ==
[~2019-03-23] VITALS: Ht 177.8 cm; Wt 58.0 kg
[2019-03-23 20:12] VITALS: BP 93/60
[2019-03-23] MEDS ORDERED: LEVE250T PO (21:35)
--- NOTE | 2019-03-23 22:00 | NUR ---
Call to [facility] at this time and spoke with Mica Jackson who was unaware patient was in hospital ER. Staff will contact father Sanford Joseph to come order picker patient. Patient made aware.
--- NOTE | 2019-03-23 22:11 | NUR ---
Assisted living facility called, makenzie clinton pt to be picked up in 20 min.
== END 2019-03-23 22:28 | disposition home or self-care (01) ==
LOC: ER 20:08
DX: R56.9 Unspecified convulsions (principal); F41.9 Anxiety disorder, unspecified; F10.10 Alcohol abuse, uncomplicated; Z90.49 Acquired absence of other specified parts of digestive tract; Z79.84 Long term (current) use of oral hypoglycemic drugs; Z79.899 Other long term (current) drug therapy; Y90.9 Presence of alcohol in blood, level not specified
CPT/HCPCS: 99283

== ENCOUNTER 2019-09-17 21:10 | Inpatient (IN) | payer MEDICARE ==
[~2019-09-17] VITALS: Ht 170.2 cm; Wt 58.0 kg
[~2019-09-17 21:10] MED LIST changes: +LEVE250T PO
[2019-09-17] MEDS ORDERED: normal saline 1000ML IV soln IVB ONE (21:25)
[2019-09-17 21:38] LABS: BASOPHILS % (AUTO) 0.1 % (0-1); EOSINOPHILS # (AUTO) 0.1 X10'3 (0-0.9); EOSINOPHILS % (AUTO) 2.4 % (0-6); HEMATOCRIT 39.3 % (35.0-45.0); HEMOGLOBIN 13.5 g/dl (12.0-16.0); LYMPHOCYTES # (AUTO) 2.5 X10'3 (1.1-4.8); LYMPHOCYTES % (AUTO) 43.1 % (21-51); MEAN CORPUSCULAR HEMOGLOBIN 33.9 PG (27.0-31.0); MEAN CORPUSCULAR HGB CONC 34.4 g/dL (33.0-36.5); MEAN CORPUSCULAR VOLUME 98.7 FL (78-98); MEAN PLATELET VOLUME 8.9 FL (7.4-10.4); MONOCYTES # (AUTO) 0.5 X10'3 (0-0.9); NEUTROPHILS # (AUTO) 2.7 X10'3 (1.8-7.7); NEUTROPHILS % (AUTO) 46.4 % (42-75); PLATELET COUNT 146 X10'3 (140-440); RED BLOOD COUNT 3.99 X10'6 (4.20-5.60); RED CELL DISTRIBUTION WIDTH 12.7 % (11.5-14.5); WHITE BLOOD COUNT 5.8 X10'3 (4.5-11.0)
[2019-09-17 21:39] LABS: CLARITY,URINE CLEAR (Clear); COLOR,URINE YELLOW (Yellow); GLUCOSE, URINE NEGATIVE (Neg); KETONES,URINE NEGATIVE (Neg); LEUKOCYTE ESTERASE ,URINE NEGATIVE (Neg); NITRITES, URINE NEGATIVE (Neg); OCCULT BLOOD,URINE NEGATIVE (Neg); PROTEIN,URINE NEGATIVE (Neg); UA COLLECTION TYPE FOLEY CATH; UROBILINOGEN,URINE 0.2 E.U/dL (0.2-1.0)
[2019-09-17 21:46] LABS: ALANINE AMINOTRANSFERASE 20 U/L (12-78); ALBUMIN 4.1 G/DL (3.4-5.0); ALBUMIN/GLOBULIN RATIO 1.1 (1.1-1.5); ALKALINE PHOSPHATASE 103 IU/L (46-116); ANION GAP 9 (8-16); ASPARTATE AMINO TRANSFERASE 20 U/L (10-37); BILIRUBIN,TOTAL 0.3 MG/DL (0.1-1.0); BLOOD UREA NITROGEN 11 MG/DL (7-18); BUN/CREATININE RATIO 10.3 (6.6-38.0); CALCIUM 8.5 MG/DL (8.5-10.1); CHLORIDE 104 MMOL/L (99-107); CREATININE 1.07 MG/DL (0.40-0.90); GLUCOSE 118 MG/DL (70-104); POTASSIUM 3.4 MMOL/L (3.5-5.1); SODIUM 140 MMOL/L (135-145); TOTAL CARBON DIOXIDE 27.2 MMOL/L (24-32); TOTAL PROTEIN 7.9 G/DL (6.4-8.2); VALPROATE 61 UG/ML (50-100); eGFR 54 ML/MIN
[2019-09-17 21:49] LABS: ETHANOL < 0.010 GM/DL (0.0-0.010)
[2019-09-17 21:50] LABS: URINE AMPHETAMINE SCREEN NEGATIVE (Neg); URINE BARBITUATE SCREEN NEGATIVE (Neg); URINE BENZODIAZEPINES SCREEN NEGATIVE (Neg); URINE CANNABINOID SCREEN NEGATIVE (Neg); URINE COCAINE SCREEN NEGATIVE (Neg); URINE METHADONE SCREEN NEGATIVE (Neg); URINE OPIATE SCREEN NEGATIVE (Neg); URINE PHENCYCLIDINE SCREEN NEGATIVE (Neg)
[2019-09-17] MEDS ORDERED: LORA10TA65 PO (22:10)
[2019-09-17] MEDS ORDERED: LORA-269 PO (22:10)
[2019-09-17] MEDS ORDERED: LISI-604 PO (22:10)
[2019-09-17] MEDS ORDERED: FOLI0.8T PO (22:10)
[2019-09-17] MEDS ORDERED: LEVE10006 PO (22:10)
[2019-09-17] MEDS ORDERED: HYDR50TA65 PO (22:10)
[2019-09-17] MEDS ORDERED: ATOR20TA66 PO (22:10)
[2019-09-17] MEDS ORDERED: LEVO25TA7 PO (22:10)
[2019-09-17] MEDS ORDERED: DIVA-36 PO (22:10)
[2019-09-17] MEDS ORDERED: SERT50TA10 PO (22:10)
[2019-09-17] MEDS ORDERED: QUET25TA34 PO (22:10)
--- NOTE | 2019-09-17 22:10 | NUR ---
Notified MD Arango of suspected left sided deficits regarding pt's inability to move left arm, left leg, and left sided facial droop.
--- NOTE | 2019-09-17 22:28 | NUR ---
Spoke with staff at pt's residential and obtained their history of precipitating event prior to ED visit. Staff reports that they were alerted to the pt's condition by her roommate. They found the pt leaning over her bed with her arms "going in strange directions." That the pt "could hear them but not move" and that 5 minutes later is when the pt's shakiness started.
[2019-09-17] MEDS ORDERED: levetiracetam inj 1,000 MG in normal saline 100ml IV soln 90 ML IV STA (22:31)
[2019-09-17] MEDS ORDERED: levetiracetam-NS 1000mg/100ml 100 ML IV ONE (22:40)
--- NOTE | 2019-09-18 00:06 | NUR ---
Pt is resting comfortably at this time, verbally responsive. She is now moving her left arm and leg.
[2019-09-18] MEDS ORDERED: acetaminophen 325mg tablet PO PRN ×2 (00:45→02:50)
[2019-09-18] MEDS ORDERED: magnesium 2GM in 50ml NS 50 ML IV PRN (00:45)
[2019-09-18] MEDS ORDERED: mag hydrox/Alum hydrox/simeth 30ml oral suspension PO PRN (00:45)
[2019-09-18] MEDS ORDERED: magnesium hydroxide 30ml (MOM) UD suspension PO PRN (00:45)
[2019-09-18] MEDS ORDERED: magnesium 4gm in 100ml NS 100 ML IV PRN (00:45)
[2019-09-18] MEDS ORDERED: ondansetron/PF 4mg/2ml inj IV PRN (00:45)
[2019-09-18] MEDS ORDERED: potassium CL 10mEq/100ml bag 100 ML IV PRN ×2 (00:45)
[2019-09-18] MEDS ORDERED: potassium Cl 20 mEq SR tablet PO PRN (00:45)
[2019-09-18] MEDS ORDERED: magnesium Cl slow-release 64mg tablet PO PRN (00:45)
[2019-09-18] MEDS: normal saline 1000ml 1,000 ML IV SCH ×3 (00:57→20:13)
[2019-09-18 01:30] VITALS: BP 127/71
[2019-09-18] MEDS: HYDROcodone/acetaminophen 5mg/325mg tablet PO PRN ×3 (03:37→13:09)
[2019-09-18 05:59] LABS: VALPROATE 62 UG/ML (50-100)
[2019-09-18 06:00] VITALS: BP 109/69
--- NOTE | 2019-09-18 06:11 | NUR ---
received report from ifrah call
[2019-09-18] MEDS: K and/or MAG REPLACEMENT MC SCH ×2 (07:32→20:00)
[2019-09-18] MEDS: lisinopril 5mg tablet PO SCH (07:36)
[2019-09-18] MEDS: potassium Cl 20 mEq SR tablet PO PRN ×3 (07:42→17:53)
[2019-09-18] MEDS: sertraline 50mg tablet PO SCH (07:43)
[2019-09-18] MEDS: levoTHYROXINE 25mcg tablet PO SCH (07:43)
[2019-09-18] MEDS: folic acid 1mg tablet PO SCH (07:43)
[2019-09-18] MEDS: divalproex sodium 250mg tablet PO SCH ×2 (07:44→20:06)
[2019-09-18] MEDS: LevETIRAcetam 1500 MG in NORMAL SALINE 100ml bag IV SCH ×2 (07:44→20:08)
[2019-09-18] MEDS ORDERED: levetiracetam inj 1,500 MG in normal saline 100ml IV soln 85 ML IV SCH (08:00)
[2019-09-18 10:00] VITALS: BP 86/56
[2019-09-18 10:17] LABS: BASOPHILS % (AUTO) 0.4 % (0-1); EOSINOPHILS # (AUTO) 0.1 X10'3 (0-0.9); EOSINOPHILS % (AUTO) 0.9 % (0-6); HEMATOCRIT 37.1 % (35.0-45.0); HEMOGLOBIN 12.7 g/dl (12.0-16.0); LYMPHOCYTES # (AUTO) 2.1 X10'3 (1.1-4.8); LYMPHOCYTES % (AUTO) 27.1 % (21-51); MEAN CORPUSCULAR HEMOGLOBIN 33.9 PG (27.0-31.0); MEAN CORPUSCULAR HGB CONC 34.3 g/dL (33.0-36.5); MEAN CORPUSCULAR VOLUME 98.9 FL (78-98); MEAN PLATELET VOLUME 10.2 FL (7.4-10.4); MONOCYTES # (AUTO) 0.7 X10'3 (0-0.9); MONOCYTES % (AUTO) 9.7 % (2-12); NEUTROPHILS # (AUTO) 4.8 X10'3 (1.8-7.7); NEUTROPHILS % (AUTO) 61.9 % (42-75); PLATELET COUNT 110 X10'3 (140-440); RED BLOOD COUNT 3.75 X10'6 (4.20-5.60); RED CELL DISTRIBUTION WIDTH 12.6 % (11.5-14.5); WHITE BLOOD COUNT 7.7 X10'3 (4.5-11.0)
--- NOTE | 2019-09-18 10:28 | NUR ---
pt is refusing to have a new iv placed at this time, continue to educate and to monitor
[2019-09-18 10:36] LABS: ALANINE AMINOTRANSFERASE 15 U/L (12-78); ALBUMIN 3.6 G/DL (3.4-5.0); ALBUMIN/GLOBULIN RATIO 1.1 (1.1-1.5); ALKALINE PHOSPHATASE 74 IU/L (46-116); ANION GAP 13 (8-16); ASPARTATE AMINO TRANSFERASE 19 U/L (10-37); BILIRUBIN,TOTAL 0.3 MG/DL (0.1-1.0); BLOOD UREA NITROGEN 9 MG/DL (7-18); CALCIUM 8.5 MG/DL (8.5-10.1); CHLORIDE 104 MMOL/L (99-107); CREATININE 0.75 MG/DL (0.40-0.90); GLUCOSE 97 MG/DL (70-104); POTASSIUM 3.5 MMOL/L (3.5-5.1); SODIUM 138 MMOL/L (135-145); TOTAL CARBON DIOXIDE 21.2 MMOL/L (24-32); TOTAL PROTEIN 6.8 G/DL (6.4-8.2); eGFR 81 ML/MIN
--- NOTE | 2019-09-18 18:19 | NUR ---
gave report to ifrah morelos
[2019-09-18] MEDS ORDERED: atorvastatin 20mg tablet PO SCH (21:00)
[2019-09-18 22:00] VITALS: BP 95/59
[2019-09-19 06:00] VITALS: BP 110/69
[2019-09-19 06:09] LABS: BASOPHILS % (AUTO) 0.5 % (0-1); EOSINOPHILS # (AUTO) 0.2 X10'3 (0-0.9); EOSINOPHILS % (AUTO) 4.7 % (0-6); HEMATOCRIT 36.8 % (35.0-45.0); HEMOGLOBIN 12.5 g/dl (12.0-16.0); LYMPHOCYTES # (AUTO) 2.2 X10'3 (1.1-4.8); LYMPHOCYTES % (AUTO) 46.8 % (21-51); MEAN CORPUSCULAR HEMOGLOBIN 33.6 PG (27.0-31.0); MEAN CORPUSCULAR VOLUME 98.9 FL (78-98); MEAN PLATELET VOLUME 9.2 FL (7.4-10.4); MONOCYTES # (AUTO) 0.5 X10'3 (0-0.9); MONOCYTES % (AUTO) 10.8 % (2-12); NEUTROPHILS # (AUTO) 1.7 X10'3 (1.8-7.7); NEUTROPHILS % (AUTO) 37.2 % (42-75); PLATELET COUNT 120 X10'3 (140-440); RED BLOOD COUNT 3.73 X10'6 (4.20-5.60); RED CELL DISTRIBUTION WIDTH 12.8 % (11.5-14.5); WHITE BLOOD COUNT 4.6 X10'3 (4.5-11.0)
[2019-09-19 06:30] LABS: ALANINE AMINOTRANSFERASE 14 U/L (12-78); ALBUMIN 3.4 G/DL (3.4-5.0); ALKALINE PHOSPHATASE 68 IU/L (46-116); ANION GAP 7 (8-16); ASPARTATE AMINO TRANSFERASE 15 U/L (10-37); BILIRUBIN,TOTAL 0.4 MG/DL (0.1-1.0); BLOOD UREA NITROGEN 13 MG/DL (7-18); BUN/CREATININE RATIO 19.7 (6.6-38.0); CALCIUM 8.5 MG/DL (8.5-10.1); CHLORIDE 108 MMOL/L (99-107); CREATININE 0.66 MG/DL (0.40-0.90); GLUCOSE 84 MG/DL (70-104); MAGNESIUM 1.8 MG/DL (1.5-2.4); POTASSIUM 4.5 MMOL/L (3.5-5.1); SODIUM 141 MMOL/L (135-145); TOTAL CARBON DIOXIDE 25.7 MMOL/L (24-32); TOTAL PROTEIN 6.7 G/DL (6.4-8.2); eGFR > 90 ML/MIN
[2019-09-19] MEDS: normal saline 1000ml 1,000 ML IV SCH (06:44)
--- NOTE | 2019-09-19 07:16 | NUR ---
Patient in room [facility]TH[facility] 4023. I have received report from ifrah Arvizu and had the opportunity to ask questions and assume patient care.
[2019-09-19] MEDS: K and/or MAG REPLACEMENT MC SCH (08:00)
[2019-09-19] MEDS: LevETIRAcetam 1500 MG in NORMAL SALINE 100ml bag IV SCH (09:05)
[2019-09-19] MEDS: divalproex sodium 250mg tablet PO SCH (09:05)
[2019-09-19] MEDS: folic acid 1mg tablet PO SCH (09:06)
[2019-09-19] MEDS: lisinopril 5mg tablet PO SCH (09:07)
[2019-09-19] MEDS: levoTHYROXINE 25mcg tablet PO SCH (09:08)
[2019-09-19] MEDS: sertraline 50mg tablet PO SCH (09:08)
[2019-09-19 10:00] VITALS: BP 116/74
[2019-09-19] MEDS ORDERED: LEVE1500 PO (11:49)
--- NOTE | 2019-09-19 11:58 | NUR ---
requested evaluation from pts' [facility] to determine if pt is back to baseline .[facility],stated they will send someone out today to eval pt.
--- NOTE | 2019-09-19 14:00 | NUR ---
pest control service representative from [facility],pts' assisted in to evaluate pt,report given.Mica,sheet rocker of assisted contacted,okd' transfer back to [facility].
--- NOTE | 2019-09-19 16:30 | NUR ---
JONEL dc'd from [facility],tele dc'd pt transferred via [facility] by w/c back to [facility] with all belongings
== END 2019-09-19 16:25 | disposition home or self-care (01) | DRG 101 ==
LOC: ER 21:11 → ED HOLD 09-18 00:44 → ORTHO 4S 09-18 01:35
PROVIDERS: ADMIT Family Medicine; ATTEND Internal Medicine
PROC: 4A00X4Z Measurement of Central Nervous Electrical Activity, External Approach (ICD-10-PCS; principal; 2019-09-18)
DX: G40.901 Epilepsy, unspecified, not intractable, with status epilepticus (principal); G93.89 Other specified disorders of brain; E03.9 Hypothyroidism, unspecified; E78.00 Pure hypercholesterolemia, unspecified; E78.5 Hyperlipidemia, unspecified; F17.210 Nicotine dependence, cigarettes, uncomplicated; F32.9 Major depressive disorder, single episode, unspecified; F41.9 Anxiety disorder, unspecified; I10 Essential (primary) hypertension; Z79.899 Other long term (current) drug therapy
CPT/HCPCS: 36415; 70450; 71045; 76937; 80053; 80164; 80305; 80320; 81003; 82140; 83735; 84443; 85025; 87081; 93005; 95816; 96361; 96365; 97161; 97530; 99291; G0378; J1953; J7030